=== PATIENT | male | born 1950 | race Caucasian/White ===

== ENCOUNTER → 2017-05-11 | Outpatient (CLI) | payer OTHER | LOC: NUC 05-05 14:31 | DX: M19.072 Primary osteoarthritis, left ankle and foot (principal); M19.071 Primary osteoarthritis, right ankle and foot; M25.561 Pain in right knee ==

== ENCOUNTER → 2020-08-27 | Outpatient (CLI) | payer OTHER ==
[~2020-08-27] MED LIST: ADULT LOW DOSE81 MG PO; AMLODIPINE BESY10 MG PO; ATORVASTATIN CA20 MG PO; CARVEDILOL12.5 MG PO; GLUMETZA1000 PO; INVOKANA300 MG PO; IRON325 PO; LOSARTAN POTAS100 MG PO; METFORMIN HCL1000 MG PO; MULTI VITAMIN1 EACH PO; PROTONIX40 M2 PO; TIMOLOL MALEATE5 M1 OPHTHALMIC; TRAMADOL 50 MG50 MG PO
[2020-08-27 09:20] LABS: URINE BILIRUBIN NEGATIVE (Negative); URINE BLOOD NEGATIVE (Negative); URINE CLARITY CLEAR; URINE COLOR YELLOW; URINE GLUCOSE-RANDOM* 3+ (Negative); URINE KETONES NEGATIVE (Negative); URINE LEUKOCYTES-REFLEX NEGATIVE (Negative); URINE NITRITE-REFLEX NEGATIVE (Negative); URINE PROTEIN (DIPSTICK) NEGATIVE (Negative); URINE SPECIFIC GRAVITY 1.015 (1.005-1.035); URINE UROBILINOGEN 0.2 E.U./dl (0.2-1.0)
[2020-08-27 09:21] LABS: HEMATOCRIT 48.7 % (42.0-52.0); HEMOGLOBIN 15.9 gm/dL (14.0-18.0); MCH 27.6 pg (26.0-34.0); MCHC 32.6 g/dL (28.0-37.0); MCV 84.7 fL (80.0-100.0); RBC 5.76 mil/uL (4.50-6.00); RDW 15.1 % (10.5-14.5)
[2020-08-27 09:32] LABS: CALCIUM 9.6 mg/dL (8.5-10.1); CREATININE 1.5 mg/dL (0.7-1.3); POTASSIUM 4.1 mmol/L (3.5-5.1)
[2020-08-27 09:41] LABS: PROTIME 10.7 Seconds (9.3-11.4)
[2020-08-28 01:06] LABS: GLYCOHEMOGLOBIN (HGB A1C) 6.3 % (4.8-5.6)
== END ==
LOC: LAB 09:00
PROVIDERS: ATTEND Orthopaedic Surgery
DX: Z01.818 Encounter for other preprocedural examination (principal); M17.12 Unilateral primary osteoarthritis, left knee

== ENCOUNTER → 2020-09-05 | Outpatient (CLI) | payer OTHER | LOC: LAB 08:45 | PROVIDERS: ATTEND Orthopaedic Surgery | DX: Z01.812 Encounter for preprocedural laboratory examination (principal); Z20.828 Contact with and (suspected) exposure to other viral communicable diseases ==

== ENCOUNTER 2020-09-11 06:04 | Day surgery (SDC) | payer OTHER ==
[2020-08-27 09:20] LABS: URINE BILIRUBIN NEGATIVE (Negative); URINE BLOOD NEGATIVE (Negative); URINE CLARITY CLEAR; URINE COLOR YELLOW; URINE GLUCOSE-RANDOM* 3+ (Negative); URINE KETONES NEGATIVE (Negative); URINE LEUKOCYTES-REFLEX NEGATIVE (Negative); URINE NITRITE-REFLEX NEGATIVE (Negative); URINE PROTEIN (DIPSTICK) NEGATIVE (Negative); URINE SPECIFIC GRAVITY 1.015 (1.005-1.035); URINE UROBILINOGEN 0.2 E.U./dl (0.2-1.0)
[2020-08-27 09:21] LABS: HEMATOCRIT 48.7 % (42.0-52.0); HEMOGLOBIN 15.9 gm/dL (14.0-18.0); MCH 27.6 pg (26.0-34.0); MCHC 32.6 g/dL (28.0-37.0); MCV 84.7 fL (80.0-100.0); RBC 5.76 mil/uL (4.50-6.00); RDW 15.1 % (10.5-14.5)
[2020-08-27 09:32] LABS: CALCIUM 9.6 mg/dL (8.5-10.1); CREATININE 1.5 mg/dL (0.7-1.3); POTASSIUM 4.1 mmol/L (3.5-5.1)
[2020-08-27 09:41] LABS: PROTIME 10.7 Seconds (9.3-11.4)
[2020-08-28 01:06] LABS: GLYCOHEMOGLOBIN (HGB A1C) 6.3 % (4.8-5.6)
--- NOTE | 2020-09-03 07:54 | EKG ---
[address] [place] [address] ELECTROCARDIOGRAM REPORT Name: CARL GUTIERREZ Room #: PRE [facility] M.R.#: [id number] Admission: Attend Phys: Flo Renteria MD Discharge: Date of : 46 Report #: [id number] [facility] Test Date: 2020-08-27 Test Time: 09:15:35 Pat Name: CARL GUTIERREZ Department: Room: Gender: M Principal Solutions Architect: VÍCTOR : 1950 Requested By: Flo Renteria Order Number: [id number] MD: Олег Hawley Measurements Intervals [place] Rate: 63 P: 25 MO: 208 QRS: 38 QRSD: 91 T: 41 QT: 389 QTc: 399 Interpretive Statements Sinus rhythm Abnormal R-wave progression, early transition No previous ECG available for comparison Electronically Signed On 08-27-2020 13:03:34 HEAD BOOKKEEPER by Олег Hawley [email or web address] <ELECTRONICALLY SIGNED> By: Олег Hawley MD, [facility] 08/27/20 1303 0915 0915 Олег Hawley MD, FACC /EPI
[2020-09-11] VITALS (8 sets, daily range): BP systolic 142–180; BP diastolic 82–94
[~2020-09-11] VITALS: Ht 185.4 cm; Wt 98.0 kg
--- NOTE | 2020-09-11 15:43 | NUR ---
ASSESSMENT: CM REVIEWED CHART. PT IS S/P LT TKR.PT REPORTS LIVING IN A HOUSE WITH HIS . PT REPORTS ABOUT 7 STEPS HE HAS TO USE. PT REPORTS THAT HE IS NORMALLY VERY INDEPENDENT. PT WORKED WITH PHYSICAL THERAPY AND IS CLEARED TO GO HOME TODAY BUT IS NEEDING A Walker. CM SPOKE WITH PT WHO REPORTS NO PREFERENCE OF DME COMPANY. [employer] CHECKED INSRUANCE AND THEY ARE DELIVERING A WALKER TO PATIENT.
--- NOTE | 2020-09-11 17:30 | NUR ---
PT RECEIVED FROM THE REC ROOM AT 1100 ALERT AND IN NO PAIN. ASSESSEMENT COMPLETED AND ORIENTED TO UNIT. PAIN MINIMAL AND HELPED W/ MED. WALKED W/ THERAPY AND DID WELL. PT DISCHARGED HOME AT THIS TIME W/ ALL BELONGINGS. WILL START THERAPY TOMORROW.
--- NOTE | 2020-09-11 18:34 | NUR ---
PATIENT ADMITTED FROM OR WITH LEFT TOTAL KNEE REPLACEMENT, LETITIA DRESSING, SCD'S, KNEE HIGH ZACH HOSE, AND POLAR CARE IN PLACE. PATIENT DENIES PAIN THIS SHIFT. PATIENT ALERT AND ORIENTED X 4. PATIENT WORKED WITH PHYSICAL THERAPY/[facility] AND WAS SAFE TO GO HOME TODAY. RIGHT WRIST IV REMOVED PRIOR TO DISCHARGE. ALL DISCHARGE PAPERWORK AND ALL PERSONAL BELONGINGS SENT WITH THE PATIENT. AT BEDSIDE. ADMISSION COMPLETED. REPORT GIVEN TO KRISSY/EMILY. PATIENT DISCHARGED TO HOME.
--- NOTE | 2020-09-12 08:30 | O ---
[facility] [place] [address] OPERATIVE REPORT Name: CARL GUTIERREZ Room #: DEP [facility] Addison.#: [id number] Admission: 09/11/20 Attend Phys: Flo Renteria MD Discharge: 09/11/20 Date of : 46 Report #: [id number] THIS REPORT FOR: cc: Apollo Haque MD, Andrea C. MD Abraham,Flo Ho MD ~ DATE OF SERVICE: 09/11/2020 PREOPERATIVE DIAGNOSIS: Left knee osteoarthritis. POSTOPERATIVE DIAGNOSIS: Left knee osteoarthritis. PROCEDURE: Left total knee arthroplasty using Navio robotic assistance. SURGEON: Dr. Flo Renteria AIR MOTOR REPAIRER: Lyn Caceres PA-C INDICATIONS FOR AIR MOTOR REPAIRER: Throughout the case, extensive retraction and manipulation of the knee was required. This was afforded to me by my economist research assistant. ANESTHESIA: LMA with an adductor canal block. IMPLANTS: [employer] size 7 Journey II BCS cobalt chrome femur, size 5 tibia, size 10 polyethylene and size 35 patella. TOURNIQUET TIME: 54 minutes. ESTIMATED BLOOD LOSS: 25 mL. COMPLICATIONS: None. SPECIMENS: None. CONDITION UPON LEAVING THE OPERATING ROOM: Stable. INDICATIONS FOR PROCEDURE: The patient is a 69-year-old gentleman with severe left knee osteoarthritis. He had failed conservative measures for this and after discussion with him, he elected for left total knee arthroplasty. DESCRIPTION OF PROCEDURE: Risks, benefits, alternatives, complications were discussed in detail with the patient including but not limited to risk of anesthesia, risk of damage to nerves, arteries, blood vessels, risk for infection, bleeding, risk for continued knee pain and need for reoperation. Informed consent was obtained from the patient. Left knee was appropriately [facility] [address] [place] [address] OPERATIVE REPORT Name: CARL GUTIERREZ Room #: DEP [facility] MYoan.#: [id number] Admission: 09/11/20 Attend Phys: Flo Renteria MD Discharge: 09/11/20 Date of : 46 Report #: [id number] marked in the preoperative holding area. IV Ancef was given for preoperative antibiotics. He was brought to the operating room and placed in supine position on operating room table. LMA anesthesia was induced without complication. Tourniquet was placed on the left thigh. Left lower extremity was prepped and draped in normal sterile fashion. Timeout was performed properly identifying the patient and procedure as well as the instrumentation and implants. All in the operating room were in agreement. Left lower extremity was exsanguinated, tourniquet was inflated. Tourniquet time was 54 minutes. Standard midline approach to knee was made with 10 blade through the skin. Dissection was taken down sharply to the fascia and deep flaps were developed medially and laterally. Fresh 10 blade was used to make a medial parapatellar arthrotomy and the knee was inspected. There was severe medial compartment and moderate patellofemoral compartment osteoarthritis. ACL and PCL were removed sharply. Reference pins were placed in the femur and the tibia. The knee was then digitally mapped using the [employer] robotic system. Intraoperative plan was made and we sized the size 7 femur with a size 5 tibia and a 10 spacer. After acceptance of the intraoperative plan, distal femoral cut was made with Navio bur. Distal femoral cutting block was pinned in place and chamfer cuts were made. Attention was then turned to the tibia. Remainder of the menisci removed with Bovie cautery. Tibial resection guide was pinned in place using the Navio for placement and tibial resection was made. Flexion and extension gaps were then checked and found to have good balance in flexion and extension both medially and laterally. Tibia was sized, found to be a size 5. A size 5 tibial trial was placed, pinned and punched. A size 7 femoral trial was placed and the box cut was made. This was then trialed with a size 10 polyethylene. Size 10 polyethylene demonstrated 1-2 millimeter of laxity medially and laterally throughout range of motion of the knee. A 9 mm of bone was resected from the posterior surface of the patella and a size 35 patellar trial button was placed. Knee was taken through range of motion, found to be stable, found to have good patellar tracking. Trial components were removed. Bony ends were thoroughly irrigated with normal saline. Final size 5 tibia, size 7 Journey II BCS cobalt chrome femur and a size 35 patella were cemented in place using standard cementation techniques. While the cement cured, a periarticular injection consisting of morphine, ropivacaine, epinephrine and Toradol was placed around the knee joint capsule. After the cement cured, tourniquet was deflated. Hemostasis was obtained with Bovie cautery. A final size 10 polyethylene was placed. A gram of vancomycin was placed deep in the joint. The fascia was closed with 0 Vicryl, skin was closed with 2-0 Vicryl, skin staple and a LETITIA dressing was applied. The patient tolerated this procedure well and went to recovery room under care of anesthesia postoperatively. <ELECTRONICALLY SIGNED> By: Flo Renteria MD 09/12/20 0830 [id number] Flo Renteria MD /nt
== END 2020-09-11 17:30 | disposition home or self-care (01) ==
LOC: OR 06:04 → TBA 06:05 → OR 08:41 → 4S 12:20 → OR 17:30
PROVIDERS: ATTEND Orthopaedic Surgery
DX: M17.12 Unilateral primary osteoarthritis, left knee (principal); M25.562 Pain in left knee; I10 Essential (primary) hypertension; E11.9 Type 2 diabetes mellitus without complications; E78.5 Hyperlipidemia, unspecified; D64.9 Anemia, unspecified; G47.30 Sleep apnea, unspecified; K21.9 Gastro-esophageal reflux disease without esophagitis; Z98.890 Other specified postprocedural states; Z79.899 Other long term (current) drug therapy; Z87.442 Personal history of urinary calculi; Z96.651 Presence of right artificial knee joint; Z85.46 Personal history of malignant neoplasm of prostate
CPT/HCPCS: 50010; 50415; 50954; 51130; 51225; 51320; 53000; 53078; 56527; 56528; 57095; 57103; 57110; 57127; 57180; 58239; 62110; 62900; 64039